=== PATIENT | female | born 1975 | race Caucasian/White ===

== ENCOUNTER 2024-07-01 01:27 | Day surgery (SDC) | payer OTHER, SELFPAY ==
[2024-06-24 14:45] VITALS: BMI 32.5
[2024-07-01 08:27] VITALS: BP 133/90; PULSE 83; RESP 18; TEMP 36.2; O2SAT 100
[2024-07-01 08:32] LABS: BEDSIDEPREGUCG Negative (Negative)
[2024-07-01] MEDS: LACTATED RINGERS 1,000 ML 150 ML IV CONT (08:35)
--- NOTE | 2024-07-01 09:19 | P.PNAN_ITS ---
Anes - Initial Pre Proc Eval Procedure: Operation Date: 07/01/24 10:00 Proposed Procedures p Esophagogastroduodenoscopy&Screen Colon - Dangelo Weston MD Date/Time: 07/01/24 09:19 Surgeon: Dangelo Weston MD Pre Op Diagnosis: GERD, Neoplasm screening Patient Data Age: 49 Gender: F Height: 1.75 m Weight: 106.3 kg Last Vital Signs Temp 36.2 C L 07/01/24 08:27 Pulse 83 07/01/24 08:27 Resp 18 07/01/24 08:27 BP 133/90 07/01/24 08:27 Pulse Ox 100 07/01/24 08:27 O2 Del Method Room Air 07/01/24 08:27 Allergies Allergy/AdvReac Type Severity Reaction Status Date / Time No Known Allergies Allergy Verified 07/01/24 08:22 Home Medications ?Medication ?Instructions ?Recorded ?Confirmed ?Type fluticasone furoate 100 1 inh inhalation DAILY 06/24/24 07/01/24 History mcg-vilanterol 25 mcg/dose inhalation powder (Breo Ellipta) levothyroxine 100 mcg tablet 100 mcg PO DAILY 06/24/24 07/01/24 History montelukast 10 mg tablet 10 mg PO DAILY 06/24/24 07/01/24 History pantoprazole 40 mg tablet,delayed 40 mg PO DAILY 06/24/24 07/01/24 History release Laboratory Tests 07/01/24 08:27 POC Urine HCG, Qual Negative (Negative) Patient hx anesthesia problems: none Family hx anesthesia problems: none Results Review: All pre-operative results and documents have been reviewed as part of the pre- operative evaluation. [facility] Social History Social History Smoking status: Never smoker Substance use type: does not use Living arrangements: with family Spiritual care concerns: No Anes - Eval Final PreProcedure Day of Procedure 07/01/24 09:19 Patient weight: obese Heart: regular rate and rhythm Lungs: clear to auscultation Airway: Mallampati scale class II Neurological: alert and oriented Last oral intake: >/= 8 hours ASA classification: II Emergent: no Anesthetic plan: proceed Anesthesia type and monitoring: general GIVS and standard monitoring Results Review: All pre-operative results and documents have been reviewed as part of the pre- operative evaluation. Informed Consent: The patient's anesthetic plan and its attendant risks and benefits were discussed with the patient/family/POA. Questions were solicited and answers provided to the satisfaction of the patient/family/POA.
--- NOTE | 2024-07-01 09:25 | P.HP_ITS ---
History of Present Illness History of Present Illness Consent: Risks, benefits, and alternatives have been discussed and questions answered. Patient agrees to proceed with procedure. Chief complaint: GERD, Neoplasm screening Narrative: Mirian Infante is a 49 year old female here for first EGD and colonoscopy, h/o GERD on protonix but sometimes has to take either tums or pepcid. [facility] Past Medical History Medical History (Updated 07/01/24 @ 09:27 by Dangelo Weston MD) Colon cancer screening GERD (gastroesophageal reflux disease) Social History Social History Smoking status: Never smoker Substance use type: does not use Living arrangements: with family Spiritual care concerns: No Meds Home Medications and Allergies Home Medications ?Medication ?Instructions ?Recorded ?Confirmed ?Type fluticasone furoate 100 1 inh inhalation DAILY 06/24/24 07/01/24 History mcg-vilanterol 25 mcg/dose inhalation powder (Breo Ellipta) levothyroxine 100 mcg tablet 100 mcg PO DAILY 06/24/24 07/01/24 History montelukast 10 mg tablet 10 mg PO DAILY 06/24/24 07/01/24 History pantoprazole 40 mg tablet,delayed 40 mg PO DAILY 06/24/24 07/01/24 History release Allergies Allergy/AdvReac Type Severity Reaction Status Date / Time No Known Allergies Allergy Verified 07/01/24 08:22 Vital Signs Vital Signs - 24 hr 07/01/24 08:27 Temperature 97.1 F L Pulse Rate 83 Respiratory Rate 18 Blood Pressure 133/90 Pulse Oximetry 100 Oxygen Delivery Room Air Exam Const: General: comfortable and no acute distress HENMT: Face/Nose/Sinus: Normal nares present Eyes: General: appearance normal, both eyes and all related structures Neck: Neck: no JVD Resp: Auscultation: clear to auscultation bilaterally Cardio: Rate: regular rate Rhythm: regular rhythm GI: Inspection: non-distended GI Palp: Yes Soft to palpation Skin: General skin exam: normal color Neuro: General: gait normal Speech: normal speech Extrem: General: normal to inspection Psych: Mental Status: mental status grossly normal Assessment and Plan Assessment and plan (1) GERD (gastroesophageal reflux disease): Code(s): K21.9 - Gastro-esophageal reflux disease without esophagitis Status: Acute Assessment and Plan: egd with bx already on ppi (2) Colon cancer screening: Code(s): Z12.11 - Encounter for screening for malignant neoplasm of colon Status: Acute Assessment and Plan: colonoscopy
[2024-07-01 09:53] VITALS: BP 117/78; PULSE 71; RESP 14; O2SAT 100
[2024-07-01 10:03] VITALS: BP 125/89; PULSE 71; RESP 14; O2SAT 100
[2024-07-01 10:13] VITALS: BP 137/89; PULSE 72; RESP 18; O2SAT 100
--- NOTE | 2024-07-01 10:38 | SUR.PREOP ---
Orders received for Fentanyl for patient's headache by Dr. Jiang. BRANDON Sebastian transferred patient to the procedure room and requested I did not give fentanyl. If patient is still complaining of headache after procedure then give fentanyl per BRANDON Sebastian
== END 2024-07-01 10:28 | disposition home or self-care (01) ==
PROVIDERS: Anesthesiology; PCP Family Medicine Sports Medicine; Visit Provider Internal Medicine Gastroenterology
PROC: 0DJ08ZZ Inspection of Upper Intestinal Tract, Via Natural or Artificial Opening Endoscopic (ICD-10-PCS; CPT 43235; principal; 2024-07-01 10:00)
DX: Z12.11 Encounter for screening for malignant neoplasm of colon (principal); D12.0 Benign neoplasm of cecum; K63.5 Polyp of colon; K21.9 Gastro-esophageal reflux disease without esophagitis; K44.9 Diaphragmatic hernia without obstruction or gangrene
CPT/HCPCS: 45385; 43239; 88305; J2003; J2704; J7120